=== PATIENT | female | born 1940 | race Caucasian/White ===

== ENCOUNTER → 2016-12-11 | Outpatient (CLI) | payer MEDICARE ==
[2016-06-11 15:23] VITALS: BP 136/68
[~2016-12-11] MED LIST: ASPI-482 PO; ASPI325T4 PO; BENZ100C2 PO; DIAZEPAM10 MG PO; FAMO-63 PO; FLUO20CA16 PO; FLUT1DIS3 INH; FURO40TA4 PO; IPRA3AMP IH; IPRA4AER IH; LEVO125T5 PO; LEVO25TA2 PO; LISI-338 PO; LISI-376 PO; METO25TA4 PO; OMEG500C PO; OMEP40CA5 PO; REGADENOSON 0.4 MG/5 ML DISP.SYRIN. IV ONE; SENN8.6T99 PO; SUCR1TAB PO; TRAZ50TA15 PO
--- NOTE | 2016-12-11 08:51 | CARD ---
APPROVED REPORT EXAM: Two-dimensional and M-mode echocardiogram with Doppler and color Doppler. Other Information Quality : GoodHR: 68bpm Rhythm : NSR INDICATION Dyspnea Surgery/Intervention CAD, COPD 2D DIMENSIONS RVDd2.0 (2.9-3.5cm)Left Atrium(2D)2.7 (1.6-4.0cm) IVSd0.8 (0.7-1.1cm)Aortic Root(2D)3.1 (2.0-3.7cm) LVDd4.0 (3.9-5.9cm)LVOT Diameter2.1 (1.8-2.4cm) PWd0.7 (0.7-1.1cm)LVDs3.0 (2.5-4.0cm) FS (%) 25.2 %SV34.9 ml LVEF(%)50.4 (>50%) Aortic Valve AI P 1/2 [id number] Mitral Valve MV E Nqpuucjy50.5cm/sMV E Peak Gr.2mmHg MV DECEL [id number] A Qfcchvuj30.7cm/s MV E Mean Gr.1mmHgE/A Ratio0.9 MV A [id number] Pulmonary Valve PV Peak Ipupsjnr40.4cm/s Tricuspid Valve TR P. Nkmsfuyv323ve/sTR Peak Gr.28mmHg Pulmonary Vein S1 Rrydtdgs63.6cm/sD2 Enflnkhr19.8cm/s PVa [id number] LEFT VENTRICLE The left ventricle is normal size. There is normal left ventricular wall thickness. The left ventricu lar systolic function is normal and the ejection fraction is low normal. EF 50-55% Abnormal septal mo tion suggestive of prior surgical intervention. Transmitral Doppler flow pattern is Grade I-abnormal relaxation pattern. RIGHT VENTRICLE The right ventricle is normal size. There is normal right ventricular wall thickness. The right ventr icular systolic function is normal. ATRIA The left atrium size is normal. The right atrium size is normal. The interatrial septum is intact wit h no evidence for an atrial septal defect or patent foramen ovale as noted on 2-D or Doppler imaging. AORTIC VALVE The aortic valve is mildlymildly sclerotic. The aortic valve is trileaflet. Doppler and Color Flow re vealed mild aortic regurgitation. There is no significant aortic valvular stenosis. MITRAL VALVE Mitral annular calcification is mild. The mitral valve leaflets are thickened. There is no evidence o f mitral valve prolapse. There is no mitral valve stenosis. Doppler and Color Flow revealed mild mitr al regurgitation. TRICUSPID VALVE The tricuspid valve is normal in structure and function. Doppler and Color Flow revealed mild to mode rate tricuspid regurgitation. The pulmonary artery systolic pressure is estimated at 33 mmHg. There i s no tricuspid valve stenosis. PULMONIC VALVE The pulmonary valve is normal in structure and function. Doppler and Color Flow revealed mild pulmoni c valvular regurgitation. There is no pulmonic valvular stenosis. GREAT VESSELS The aortic root is normal in size. The ascending aorta is normal in size. The pulmonary artery is nor mal. The IVC is normal in size and collapses >50% with inspiration. PERICARDIAL EFFUSION There is no evidence of significant pericardial effusion. Critical Notification Critical Value: No <Conclusion> Doppler and Color Flow revealed mild aortic regurgitation. Doppler and Color Flow revealed mild to moderate tricuspid regurgitation. The pulmonary artery systol ic pressure is estimated at 33 mmHg. The left ventricular systolic function is normal and the ejection fraction is low normal. EF 50-55%
--- NOTE | 2016-12-11 11:09 | RAD ---
APPROVED REPORT Test Type: Pharmacological Stress Nurse/Tech: La Milligan R.N. Test Indications: dyspnea Cardiac History: cabg 3 yrs ago, mi, htn Medications: see ehr Medical History: see ehr Resting ECG: sr Resting Heart Rate: 62 bpm Resting Blood Pressure: 124/51mmHg Pretest Chest Pain: No chest pain Nurse/Tech Notes lungs cta, heart tones regular Consent: The procedure was explained to the patient in lay terms. Informed consent was witnessed. Charly eout was entered into [employer]. History and Stress Test performed by La Milligan R.N. Pharm. Details Pharmacologic stress testing was performed using 0.4mg per 5ml of regadenoson given intravenously ove r 7-10 seconds. Stress Symptoms No chest pain or symptoms. POST EXERCISE Reason for Termination: Infusion complete Max HR: 82 bpm Max Blood Pressure: 133/48mmHg Chest Pain: No. Arrhythmia: No. ST Change: No. INTERPRETATION Stress EKG Conclusion: Baseline EKG showed sinus rhythm. No ischemic changes at peak stress. No arr hythmias. Rest: Stress: Viability: Radiopharm.Tc99m TspncwdalDy89x Sestamibi Bhcy99nEy 32mCi Duration 15min. 10min. Img Date 12/11/2016 12/11/2016 Inj-Img [id number]. 60min. Rest Admin Site:IV - Left AntecubitalAdministrator:EVERARDO Saldana, ARRT (R)(N) Stress Admin Site: IV - Left AntecubitalAdministrator: Sharlene Roe, RT (R)(N) STRESS DATA End Diast. Vol.41.0mlAv. Heart Rate68.0bpm End Syst. Vol.5.0mlCO Index BSA0.0L/min Myocardial Mass85.0gEject. Rragmohq16.0% Stress Rates Pk. Fill Rate4.27EDV/secLVtime Pk. Fill 250.44msec Pk. Empty Rate4.94ESV/secLVtime Pk. Plsrd497.54msec 12/01 Pk. Fill0.90EDV/sec Stress Scores Regional WT0.00Summed WT0.00 Regional WM0.00Summed WM3.00 Study quality was good. Left Ventricular size was Normal at Rest and Stress. Lung uptake was Normal. Left Ventricular ejection fraction is 88%. The rest and stress images show normal perfusion, normal contraction and thickening. LV Perf. Quant 17 Seg. SSS0.00 17 Seg. SRS1.00 17 Seg. SDS0.00 Stress Defect Extent (% LAD)0.00Rest Defect Extent (% LAD)0.00Rev. Defect Extent (% LAD)0.00 Stress Defect Extent (% LCX) 3.80Rest Defect Extent (% LCX)11.30Rev. Defect Extent (% LCX)0.00 Stress Defect Extent (% RCA)0.00Rest Defect Extent (% RCA)0.00Rev. Defect Extent (% RCA)0.00 Stress Defect Extent (% ANGEL)0.70Rest Defect Extent (% ANGEL)2.00Rev. Defect Extent (% ANGEL)0.00 Conclusion 1. Regadenoson cardioisotope stress test did not show any evidence of ischemia or infarct. 2. Normal left ventricular systolic function with ejection fraction calculated at 88%. 3. Low risk for cardiac events.
== END | disposition home or self-care (01) ==
LOC: ECHO 07:27
PROVIDERS: ATTEND Internal Medicine Cardiovascular Disease
DX: R06.00 Dyspnea, unspecified (principal)
CPT/HCPCS: 78452; 93017; 93306; 96374; 96376; A9500; J2785